=== PATIENT | male | born 2000 | race Hispanic/Latino ===

== ENCOUNTER 2022-02-11 22:23 | Emergency (ER) | payer BC ==
[2022-02-11] MEDS ORDERED: Boostrix 0.5 ML (Tdap) VIAL (>/=7 yrs of age) ONE (22:41)
== END 2022-02-12 00:59 | disposition home or self-care (01) ==
LOC: CSHERS 22:23
DX: S91.331A Puncture wound without foreign body, right foot, initial encounter (principal); W21.31XA Struck by shoe cleats, initial encounter
CPT/HCPCS: 90471; 90715